=== PATIENT | female | born 1945 | race Caucasian/White ===

== ENCOUNTER → 2016-09-08 | Outpatient (REF) | payer OTHER | LOC: M LAB REF 16:59 | PROVIDERS: ATTEND Surgery | DX: C43.62 Malignant melanoma of left upper limb, including shoulder (principal) ==

== ENCOUNTER 2017-12-14 09:25 | Day surgery (SDC) | payer MEDICARE ==
[~2017-12-14 09:25] MED LIST: ACETAMINOPHEN 325 MG TAB PO; PHENYLEPHRINE HCL 10 % OPHTH. SOL 5ML OS; PROPARACAINE 0.5% OPHTH SOL 15ML OS
[2017-12-14] MEDS: CYCLOPENTOLATE 2% OPHTH SOLN 2ML BTL OS (09:48)
[2017-12-14] MEDS: PHENYLEPHRINE 2.5% OPHTH SOL 2ML OS (09:48)
[2017-12-14] MEDS: OFLOXACIN 0.3 % (OCUFLOX) OPTH SOL 5ML OS (09:49)
[2017-12-14] MEDS: LIDOCAINE 3.5 % 1ML OPHTH TOPICAL GEL OU (09:49)
[2017-12-14] MEDS: TROPICAMIDE 1% OPHTH SOLN 2ML OS (09:49)
[2017-12-14] MEDS ORDERED: MIDAZOLAM INJ 2 MG/2 ML VIAL (J2250) As Ordered (10:33)
[2017-12-14] MEDS ORDERED: fentaNYL 100 MCG/2 ML INJECTION (J3010) As Ordered (10:33)
[2017-12-14] MEDS: POVIDONE-IODINE 5% OPHTH PREP SOL 30ML As Ordered (11:02)
[2017-12-14] MEDS: ACETYLCHOLINE OPHTH SOLN 1% 2ML (MIOCHOL-E) As Ordered (11:02)
[2017-12-14] MEDS: LIDOCAINE 1% SDV 5 ML VIAL As Ordered (11:02)
[2017-12-14] MEDS: CEFUROXIME 1MG/0.1ML INTRACAMERAL INJ As Ordered (11:12)
[2017-12-14] MEDS: HEALON DUET (HEALON 10MG/ML 0.55ML & HEALON ENDOCOAT 30MG/ML 0.85ML) As Ordered (11:12)
[2017-12-14] MEDS: TETRACAINE 0.5% OPHTH SOLN 4ML As Ordered (11:12)
[2017-12-14] MEDS: BALANCED SALT IRRIGATION SOLUTION 500ML BAG (FOR OR EYE MACHINE) As Ordered (11:12)
[2017-12-14] MEDS ORDERED: AcetaZOLAMIDE 500 MG ER CAP As Ordered (11:32)
[2017-12-14] MEDS: AcetaZOLAMIDE 500 MG ER CAP PO (11:34)
[2017-12-14] MEDS: KETOROLAC 0.5% OPHTH SOLN OS (11:34)
[2017-12-14] MEDS ORDERED: TRIMETHOBENZAMIDE 300 MG CAP PO (12:00)
== END 2017-12-14 11:48 | disposition home or self-care (01) ==
LOC: M SDC 11:48
DX: H25.12 Age-related nuclear cataract, left eye (principal); H52.202 Unspecified astigmatism, left eye; I10 Essential (primary) hypertension; Z79.899 Other long term (current) drug therapy; Z87.891 Personal history of nicotine dependence
CPT/HCPCS: 66984

== ENCOUNTER → 2023-05-27 | Outpatient (REF) | payer MEDICARE ==
[~2023-05-27] MED LIST changes: -ACETAMINOPHEN 325 MG TAB PO; +BIOT2500 PO; +LUTE40CA2 PO; -PHENYLEPHRINE HCL 10 % OPHTH. SOL 5ML OS; -PROPARACAINE 0.5% OPHTH SOL 15ML OS; +SPIR-10 PO; +VITA-243 PO; +VITA500079 PO
== END ==
LOC: M SFHCRHEU 13:42
PROVIDERS: ATTEND Internal Medicine Rheumatology
DX: M35.3 Polymyalgia rheumatica (principal); R70.0 Elevated erythrocyte sedimentation rate; R76.8 Other specified abnormal immunological findings in serum; H04.123 Dry eye syndrome of bilateral lacrimal glands

== ENCOUNTER → 2023-08-04 | Outpatient (REF) | payer MEDICARE ==
[2023-08-04 19:18] LABS: BASO % 0.3 % (0.0-1.0); EOS # 0.1 10^3/uL (0.0-0.5); EOS % 0.8 % (0.0-3.0); HEMATOCRIT 42.5 % (36.0-47.0); HEMOGLOBIN 13.7 g/dl (12.0-15.5); LYMPH # 0.5 10^3/uL (1.5-5.0); LYMPH % 7.3 % (24.0-44.0); MEAN CORPUSCULAR HEMOGLOBIN 30.7 pg (27.0-33.0); MEAN CORPUSCULAR HGB CONC 32.2 g/dl (32.0-36.5); MEAN CORPUSCULAR VOLUME 95.3 fl (80.0-96.0); MONO # 0.3 10^3/uL (0.0-0.8); MONO % 4.2 % (2.0-8.0); NEUTROPHILS # 5.6 10^3/uL (1.5-8.5); NEUTROPHILS % 86.9 % (36.0-66.0); PLATELET COUNT, AUTOMATED 193 10^3/uL (150-450); RED BLOOD COUNT 4.46 10^6/uL (4.00-5.40); WHITE BLOOD COUNT 6.4 10^3/uL (4.0-10.0)
[2023-08-04 19:24] LABS: ERYTHROCYTE SEDIMENTATION RATE 14 mm/hr (0-30)
[2023-08-04 19:43] LABS: ALBUMIN 3.8 G/DL (3.2-5.2); ALKALINE PHOSPHATASE 61 U/L (46-116); ALT/SGPT 15 U/L (7.0-40); AST/SGOT 10 U/L (<34); BILIRUBIN,TOTAL 0.8 MG/DL (0.3-1.2); BLOOD UREA NITROGEN 22 MG/DL (9-23); CALCIUM LEVEL 9.5 MG/DL (8.3-10.6); CARBON DIOXIDE LEVEL 28 MMOL/L (20-31); CHLORIDE LEVEL 103 MMOL/L (98-107); CREATININE FOR GFR 0.74 MG/DL (0.55-1.30); GLOMERULAR FILTRATION RATE > 60.0 (>39); GLUCOSE, FASTING 130 MG/DL (74-106); POTASSIUM SERUM 4.2 MMOL/L (3.5-5.1); SODIUM LEVEL 140 MMOL/L (136-145); TOTAL PROTEIN 6.4 G/DL (5.7-8.2)
== END ==
LOC: M SFHCRHEU 15:18
PROVIDERS: ATTEND Internal Medicine Rheumatology
DX: M35.3 Polymyalgia rheumatica (principal); R70.0 Elevated erythrocyte sedimentation rate; R76.8 Other specified abnormal immunological findings in serum; H04.123 Dry eye syndrome of bilateral lacrimal glands